=== PATIENT | female | born 1930 | race Caucasian/White ===

== ENCOUNTER 2016-10-14 15:08 | Emergency (ER) | payer MEDICARE, OTHER ==
[2016-10-14 15:28] VITALS: RESP 20
[2016-10-14 15:42] LABS: Basophils % (A) 0 %; CH 29.8; CHCM 33.5; Eosinophils # (A) 0.2 k/uL (0-0.7); Eosinophils % (A) 2 %; HDW 2.61; Luc # (Auto) 0.21; Luc % (Auto) 2; Lymphocytes # (A) 1.7 k/uL (1.0-4.8); Lymphocytes % (A) 20 %; MCH 29.1 pg (25.0-35.0); MCHC 32.6 g/dL (31.0-37.0); MCV 89.3 fL (80.0-100.0); Mean Platelet Volume 8.1; Monocytes # (A) 0.6 k/uL (0-1.0); Monocytes % (A) 7 %; Neutrophils % (A) 69 %; RBC 4.47 m/uL (3.80-5.40); RDW 14.7 % (11.5-15.5); WBC 8.8 k/uL (3.8-10.6)
--- NOTE | 2016-10-14 15:47 | XR ---
EXAMINATION TYPE: XR chest 2V DATE OF EXAM: 10/14/2016 3:43 PM COMPARISON: NONE HISTORY: Chest pain FINDINGS: The lungs are clear and there is no pneumothorax, pleural effusion, or focal pneumonia. Postsurgica l change noted. Degenerative change of the spine noted. There is cardiomegaly. Linear changes at the left lung base suggestive of scar or atelectasis. IMPRESSION: 1. No acute process.
[2016-10-14 15:56] LABS: Creatine Kinase 43 U/L (30-135)
[2016-10-14 15:57] LABS: ALT 32 U/L (9-52); AST 24 U/L (14-36); Alkaline Phosphatase 84 U/L (38-126); Anion Gap 11 mmol/L; Blood Urea Nitrogen 30 mg/dL (7-17); Calcium 9.4 mg/dL (8.4-10.2); Carbon Dioxide 29 mmol/L (22-30); Chloride 101 mmol/L (98-107); Glucose 84 mg/dL (74-99); Magnesium 2.2 mg/dL (1.6-2.3); Non-African American GFR(MDRD) 50 (>60 ml/min/1.73 sqM); Potassium 4.4 mmol/L (3.5-5.1); Sodium 141 mmol/L (137-145); Total Bilirubin 0.5 mg/dL (0.2-1.3); Total Protein 7.1 g/dL (6.3-8.2)
[2016-10-14 16:04] LABS: Prothrombin Time 10.1 sec (9.0-12.0)
[2016-10-14 16:08] LABS: Creatine Kinase MB 0.3 ng/mL (0.0-2.4); Partial Thromboplastin Time 21.5 sec (22.0-30.0); Troponin I <0.012 ng/mL (0.000-0.034)
--- NOTE | 2016-10-14 16:21 | ED ---
General Adult HPI - General Chief complaint: Chest Pain Stated complaint: Chest pain Time Seen by Provider: 10/14/16 15:16 Source: patient, RN notes reviewed, old records reviewed Mode of arrival: EMS Limitations: no limitations - History of Present Illness Initial comments: This is an 86-year-old female the chest and. Patient has significant heart history, history of heart disease, history of angina. Patient had anginal type pain today to nitro and the pain resolved, her daughter was worried and told to come emergency room. Patient states she currently has no pain no shortness of breath and no other complaints. Patient was doing no activity when the pain began. There was no modifying factors for her symptoms. Nitro didn't completely resolve pain - Related Data Home Medications Medication Instructions Recorded Confirmed ALPRAZolam [Xanax] 0.5 mg PO HS PRN 10/14/16 10/14/16 Ascorbic Acid [Vitamin C] 500 mg PO DAILY 10/14/16 10/14/16 Aspirin 325 mg PO DAILY 10/14/16 10/14/16 Atorvastatin Calcium [Lipitor] 40 mg PO HS 10/14/16 10/14/16 Cholecalciferol [Vitamin D3] 2,000 unit PO DAILY 10/14/16 10/14/16 Clopidogrel Bisulfate [Plavix] 75 mg PO DAILY 10/14/16 10/14/16 Flaxseed Oil [[place]-3 Flaxseed Oil] 1,000 mg PO DAILY 10/14/16 10/14/16 Furosemide [Lasix] 40 mg PO DAILY 10/14/16 10/14/16 Isosorbide Mononitrate ER [Imdur] 30 mg PO DAILY 10/14/16 10/14/16 Levothyroxine Sodium [Synthroid] 25 mcg PO DAILY 10/14/16 10/14/16 Losartan [Cozaar] 50 mg PO DAILY 10/14/16 10/14/16 Metoprolol Succinate (ER) [Toprol 100 mg PO BID 10/14/16 10/14/16 Xl] Pantoprazole [Protonix] 40 mg PO BID 10/14/16 10/14/16 Potassium Chloride [K-Tab ER] 10 meq PO DAILY 10/14/16 10/14/16 Pregabalin [Lyrica] 150 mg PO DAILY 10/14/16 10/14/16 Saxagliptin HCl [Onglyza] 2.5 mg PO DAILY 10/14/16 10/14/16 Vitamin B Complex 1 cap PO DAILY 10/14/16 10/14/16 Vitamin E 1,000 unit PO DAILY 10/14/16 10/14/16 amLODIPine BESYLATE [Norvasc] 5 mg PO DAILY 10/14/16 10/14/16 Allergies Allergy/AdvReac Type Severity Reaction Status Date / Time codeine Allergy Unknown Verified 10/14/16 16:03 Sulfa (Sulfonamide Allergy Swelling Verified 10/14/16 16:03 Antibiotics) Review of Systems ROS Statement: Those systems with pertinent positive or pertinent negative responses have been documented in the HPI. ROS Other: All systems not noted in ROS Statement are negative. Past Medical History History of Any Multi-Drug Resistant Organisms: None Reported Past Surgical History: Coronary Bypass/CABG Additional Past Surgical History / Comment(s): bypass was 7 years ago with two stents Past Psychological History: No Psychological Hx Reported Smoking Status: Former smoker Past Alcohol Use History: Occasional Past Drug Use History: None Reported General Exam Limitations: no limitations General appearance: alert, in no apparent distress Head exam: Present: atraumatic, normocephalic, normal inspection Eye exam: Present: normal appearance, PERRL, EOMI. Absent: scleral icterus, conjunctival injection, periorbital swelling ENT exam: Present: normal exam, mucous membranes moist Neck exam: Present: normal inspection. Absent: tenderness, meningismus, lymphadenopathy Respiratory exam: Present: normal lung sounds bilaterally. Absent: respiratory distress, wheezes, rales, rhonchi, stridor Cardiovascular Exam: Present: regular rate, normal rhythm, normal heart sounds. Absent: systolic murmur, diastolic murmur, rubs, gallop, clicks GI/Abdominal exam: Present: soft, normal bowel sounds. Absent: distended, tenderness, guarding, rebound, rigid Extremities exam: Present: normal inspection, full ROM, normal capillary refill. Absent: tenderness, pedal edema, joint swelling, calf tenderness Back exam: Present: normal inspection Neurological exam: Present: alert, oriented X3, CN II-XII intact Psychiatric exam: Present: normal affect, normal mood Skin exam: Present: warm, dry, intact, normal color. Absent: rash Course Vital Signs 10/14/16 15:12 Temperature 98.1 F Pulse Rate 62 Respiratory 20 Rate Blood Pressure 220/84 O2 Sat by Pulse 95 Oximetry - Reevaluation(s) Reevaluation #1: 10/14/16 16:24 Patient remains pain free EKG Findings - EKG Comments: EKG Findings:: EKG shows sinus bradycardia rate of 57, MS 240, QRS 124, QTc 453 Medical Decision Making - Medical Decision Making 86 female here with chest pain. Patient does have significant heart history. Patient currently remains chest pain-free, EKG and troponin are negative. Patient states she would like to be discharged home she states she'll return to ER if symptoms worsen or return - Lab Data Result diagrams: 10/14/16 15:25 10/14/16 15:25 Lab Results 10/14/16 10/14/16 10/14/16 Range/Units 15:25 15:25 15:25 WBC 8.8 (3.8-10.6) k/uL RBC 4.47 (3.80-5.40) m/uL Hgb 13.0 (11.4-16.0) gm/dL Hct 40.0 (34.0-46.0) % MCV 89.3 (80.0-100.0) fL MCH 29.1 (25.0-35.0) pg MCHC 32.6 (31.0-37.0) g/dL RDW 14.7 (11.5-15.5) % Plt Count 233 (150-450) k/uL Neutrophils % 69 % Lymphocytes % 20 % Monocytes % 7 % Eosinophils % 2 % Basophils % 0 % Neutrophils # 6.0 (1.3-7.7) k/uL Lymphocytes # 1.7 (1.0-4.8) k/uL Monocytes # 0.6 (0-1.0) k/uL Eosinophils # 0.2 (0-0.7) k/uL Basophils # 0.0 (0-0.2) k/uL PT (9.0-12.0) sec INR (<1.1) APTT (22.0-30.0) sec Sodium 141 (137-145) mmol/L Potassium 4.4 (3.5-5.1) mmol/L Chloride 101 (98-107) mmol/L Carbon Dioxide 29 (22-30) mmol/L Anion Gap 11 mmol/L BUN 30 H (7-17) mg/dL Creatinine 1.05 H (0.52-1.04) mg/dL Est GFR (MDRD) Af Amer >60 (>60 ml/min/1.73 sqM) Est GFR (MDRD) Non-Af 50 (>60 ml/min/1.73 sqM) Glucose 84 (74-99) mg/dL Calcium 9.4 (8.4-10.2) mg/dL Magnesium 2.2 (1.6-2.3) mg/dL Total Bilirubin 0.5 (0.2-1.3) mg/dL AST 24 (14-36) U/L ALT 32 (9-52) U/L Alkaline Phosphatase 84 (38-126) U/L Total Creatine Kinase 43 (30-135) U/L CK-MB (CK-2) 0.3 (0.0-2.4) ng/mL CK-MB (CK-2) Rel Index 0.7 Troponin I <0.012 (0.000-0.034) ng/mL Total Protein 7.1 (6.3-8.2) g/dL Albumin 3.9 (3.5-5.0) g/dL 10/14/16 Range/Units 15:25 WBC (3.8-10.6) k/uL RBC (3.80-5.40) m/uL Hgb (11.4-16.0) gm/dL Hct (34.0-46.0) % MCV (80.0-100.0) fL MCH (25.0-35.0) pg MCHC (31.0-37.0) g/dL RDW (11.5-15.5) % Plt Count (150-450) k/uL Neutrophils % % Lymphocytes % % Monocytes % % Eosinophils % % Basophils % % Neutrophils # (1.3-7.7) k/uL Lymphocytes # (1.0-4.8) k/uL Monocytes # (0-1.0) k/uL Eosinophils # (0-0.7) k/uL Basophils # (0-0.2) k/uL PT 10.1 (9.0-12.0) sec INR 1.0 (<1.1) APTT 21.5 L (22.0-30.0) sec Sodium (137-145) mmol/L Potassium (3.5-5.1) mmol/L Chloride (98-107) mmol/L Carbon Dioxide (22-30) mmol/L Anion Gap mmol/L BUN (7-17) mg/dL Creatinine (0.52-1.04) mg/dL Est GFR (MDRD) Af Amer (>60 ml/min/1.73 sqM) Est GFR (MDRD) Non-Af (>60 ml/min/1.73 sqM) Glucose (74-99) mg/dL Calcium (8.4-10.2) mg/dL Magnesium (1.6-2.3) mg/dL Total Bilirubin (0.2-1.3) mg/dL AST (14-36) U/L ALT (9-52) U/L Alkaline Phosphatase (38-126) U/L Total Creatine Kinase (30-135) U/L CK-MB (CK-2) (0.0-2.4) ng/mL CK-MB (CK-2) Rel Index Troponin I (0.000-0.034) ng/mL Total Protein (6.3-8.2) g/dL Albumin (3.5-5.0) g/dL - Radiology Data Radiology results: report reviewed (Chest x-ray two-view is negative for acute disease), image reviewed Disposition Clinical Impression: Stable angina Disposition: HOME SELF-CARE Condition: Good Instructions: Chest Pain (ED) Referrals: Lazaro Milian MD [Primary Care Provider] - 1-2 days
[2016-10-14 16:48] VITALS: BP 147/63; PULSE 57; TEMP 96.9
== END 2016-10-14 17:17 | disposition home or self-care (01) ==
LOC: EC 15:08
DX: I20.8 Other forms of angina pectoris (principal); Z79.899 Other long term (current) drug therapy; Z88.2 Allergy status to sulfonamides; Z88.5 Allergy status to narcotic agent; Z95.1 Presence of aortocoronary bypass graft; Z87.891 Personal history of nicotine dependence; Z79.82 Long term (current) use of aspirin; Z79.02 Long term (current) use of antithrombotics/antiplatelets
CPT/HCPCS: 36415; 71020; 80053; 82550; 82553; 83735; 84484; 85025; 85610; 85730; 93005; 99285